=== PATIENT | male | born 1960 | race Caucasian/White ===

== ENCOUNTER 2017-12-19 12:24 | Observation (INO) | payer OTHER ==
[~2017-12-19 12:24] MED LIST: LISI-519 PO; OMEP20TA93 PO; SIMV20TA PO; VENTAER INH
[2017-12-19] MEDS: SODIUM CHLOR 0.9% 1000 ML INJ 1,000 ML IV SCH ×2 (12:56→22:56)
[2017-12-19] MEDS ORDERED: NALOXONE HCL 0.4 MG/ML AMP IV PUSH PRN (13:00)
[2017-12-19] MEDS ORDERED: ONDANSETRON HCL 4 MG/2 ML VIAL IVP PRN (13:00)
[2017-12-19] MEDS ORDERED: SODIUM CHLORIDE 0.9% FLUSH 10 ML FLUSH IV FLUSH PRN (13:00)
--- NOTE | 2017-12-19 15:42 | PD.CONS ---
HPI History of Present Illness This is a 57 year old male who presented to the [place] ER with abd pain. The pain is in epigastric region and started this morning. Pain radiates around to the back on the left side. Pain has been constant and worsening with exacerbation. No n/v, diarrhea, blood in stool, black tarry stool, weight loss. Episodes of pain are becoming more frequent. he has had pain like this before starting in 1989 when his gallbladder was removed and had jaundice at that time. He had another similar episode 2006 and "there was a stone" that was removed by his GI Dr at the time by Dr Alfaro in [place]. He had episodes as well last September 2016 and July 2017, and then 2-3 months ago. He sees Dr Stein and his last EGD and colonoscopy was 1 y ago and no abnormal findings. (Yari Mendez) PFSH Past Medical History HTN HLD GERD Past Surgical History cholecystectomy (Yari Mendez) Uncoded Allergies: SEAFOOD (Allergy, Severe, Hives, 12/19/17) Family History colon ca - mother dx age 40s parkinson's - mother Social History social etoh, 3-4 beers on a weekend day only no tobacco or illicit drug use (Yari Mendez) Review of Systems Constitutional: DENIES: Fever, Weight loss Endocrine: DENIES: Polydipsia Eyes: DENIES: Blurred vision Ears, nose, mouth, throat: DENIES: Hearing loss Respiratory: DENIES: Cough Cardiovascular: DENIES: Chest pain Gastrointestinal: COMPLAINS OF: Abdominal pain, DENIES: Black stools, Bloody stools, Diarrhea, Nausea Genitourinary: DENIES: Hematuria Musculoskeletal: DENIES: Muscle aches Integumentary: DENIES: Jaundice Hematologic/lymphatic: DENIES: Bruising Immunologic/allergic: DENIES: Eczema Neurologic: DENIES: Abnormal gait Psychiatric: DENIES: Confusion (Yari Mendez) GI Exam Physical Examination HEENT: PERRL, normocephalic; atraumatic; no jaundice. CHEST: CTA CARDIAC: RRR ABDOMEN: Soft, protuberant, mild epigastric TTP; no hepatosplenomegaly; bowel sounds are present in all four quadrants. EXTREMITIES: No clubbing, cyanosis, or edema. SKIN: Normal; no rash; no jaundice. 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 (Yari Mendez) Assessment and Plan Plan ASSESSMENT - epigastric pain, abnormal imaging - unclear etiology. epigastric pain onset [address] showed pneumobilia vs portal venous air, mild biliary duct dilatation mild obstruction vs reservoir phenomenon, CBD 11mm. no n/v. has had increasingly frequent episodes of this pain since cholecystectomy in 1989 at which time he had jaundice. had EGD and colonoscopy [address] Stein, no abnormal findings. will get MRCP w/o choledocholithiasis - isolated elevation AST - unclear etiology could be fatty liver or 2/2 above PLAN - MRCP - if MRCP negative consider EGD - monitor LFTs - clear liquids - further recs to follow pt seen by myself and Dr Vieyra and this note is on his behalf (Yari Mendez) Plan Patient was seen and examined, agree with above-noted, we will plan on doing upper endoscopy tomorrow unless there is elevation of liver function test and this could be biliary colic causing the symptom, I discussed with them ERCP including the complication at the possible low yield and he understands that and we will hold off on this right now (Efra Vieyra MD) Yari Mendez Dec 19, 2017 15:42 Efra Vieyra MD Dec 19, 2017 19:32
--- NOTE | 2017-12-19 16:18 | PD.CONS ---
cc: Juan Carlos Perales MD [facility] Service General Surgery Consult Requested By Dr. Archer Reason for Consult Pneumobilia on CT scan Primary Care Physician [facility] History of Present Illness This is a 57 year old male with a past medical history of gallstone s/p laparoscopic cholecystectomy in 2006, asthma, dyslipidemia, hypertension and GERD. The patient reported to the [place] ED with complains of sudden onset of 10/10 sharp abdominal pain on his way to work. He was in his usual state of health yesterday and upon waking up today. A CT abdomen/pelvis was obtained which shows pneumobilia. He has a normal WBC. His liver enzymes are normal. The patient was transferred to [facility] for evaluation. Of note, the patient had a similar episode of abdominal pain in September 2016 and an EGD and colonoscopy were completed which were normal per patient's report. A second episode occurred in July of 2017 and an MRI was completed and per patient's report the scan was normal. A General Surgery consultation has been requested. Review of Systems Constitutional: DENIES: Fatigue, Weight loss, Chills Endocrine: DENIES: Polydipsia, Polyuria, Polyphagia Eyes: DENIES: Diplopia, Eye inflammation Ears, nose, mouth, throat: DENIES: Tinnitus, Hearing loss Respiratory: DENIES: Apneas Cardiovascular: DENIES: Chest pain Gastrointestinal: COMPLAINS OF: Abdominal pain, DENIES: Nausea, Vomiting Genitourinary: DENIES: Urinary frequency Musculoskeletal: DENIES: Joint pain Integumentary: DENIES: Abnormal pigmentation Hematologic/lymphatic: DENIES: Bruising Immunologic/allergic: DENIES: Eczema Neurologic: DENIES: Abnormal gait, Headache Psychiatric: DENIES: Confusion, Mood changes, Depression Past Family Social History Past Medical History Gallstone s/p lap josh Asthma Dyslipidemia Hypertension GERD Past Surgical History Laparoscopic cholecystectomy Open appendectomy in his 20s Shoulder surgery Reported Medications Albuterol Simvastatin Lisinopril Omeprazole Allergies: Uncoded Allergies: SEAFOOD (Allergy, Severe, Hives, 12/19/17) Active Ordered Medications Current Medications Medications (Trade) Dose Ordered Sig/Margie Route Start Time Stop Time Status Last Admin Sodium Chloride 1,000 ml @ 100 mls/hr Q10H IV 12/19/17 12:56 (NS Flush) 2 ml UNSCH PRN IV FLUSH 12/19/17 13:00 (NS Flush) 2 ml BID IV FLUSH 12/19/17 21:00 (Zofran Inj) 4 mg Q6H PRN IVP 12/19/17 13:00 (Narcan Inj) 0.4 mg UNSCH PRN IV PUSH 12/19/17 13:00 Family History Noncontributory Social History Denies tobacco use Occasional ETOH use; not daily Denies illicit drug use The patient is . 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 Physical Exam Physical Exam GENERAL: Very pleasant 57 year old male resting in bed in no acute distress. SKIN: Warm and dry. HEAD: Atraumatic. Normocephalic. EYES: Pupils equal and round. No scleral icterus. No injection or drainage. ENT: No nasal bleeding or discharge. Mucous membranes pink and moist. NECK: Trachea midline. CARDIOVASCULAR: Regular rate and rhythm. RESPIRATORY: No accessory muscle use. Clear to auscultation. Breath sounds equal bilaterally. GASTROINTESTINAL: Abdomen soft, nondistended. Very minimal epigastric tenderness with palpation. Faint laparoscopic scars. RLQ scar well healed. MUSCULOSKELETAL: Extremities without clubbing, cyanosis, or edema. No obvious deformities. NEUROLOGICAL: Awake and alert. No obvious cranial nerve deficits. Motor grossly within normal limits. Five out of 5 muscle strength in the arms and legs. Normal speech. PSYCHIATRIC: Appropriate mood and affect; insight and judgment normal. Imaging CT abdomen/pelvis in [place] [facility] showed pneumobilia. Assessment and Plan Assessment and Plan 57 year old male with acute onset of abdominal pain; pneumobilia on CT abdomen/ pelvis -Continue to follow clinical exam -Pain medications PRN -GI also consulted---MRCP ordered for today -Will follow results -Repeat laboratory work in the morning -Thank you for this consult; We will continue to follow Discussed Condition With Dr. Diaz ALVARADO Attending Statement patient seen at bedside appears stable, possible cbd stone await mrcp findings consider ercp await gi recs will follow Attestation The exam, history, and the medical decision-making described in the above note were completed with the assistance of the mid-level provider. I reviewed and agree with the findings presented. I attest that I had a [id number] encounter with the patient on the same day, and personally performed and documented my assessment and findings in the medical record. Lexi Dodson. CHRISTIANO/First Ozzie ALVARADO Dec 19, 2017 16:18 Juan Carlos Perales MD Dec 29, 2017 08:12
[2017-12-19 16:56] VITALS: BP 127/76; PULSE 60; RESP 18; TEMP 97.5; O2SAT 97
[2017-12-19] MEDS ORDERED: GADODIAMIDE PF 287 MG/ML 5 ML VIAL (for RAD MRI) IVCONTRAST ONE (16:57)
--- NOTE | 2017-12-19 17:34 | RADRPT ---
EXAM DATE/TIME: 12/19/2017 16:20 [facility] COMPARISON: No previous studies available for comparison. INDICATIONS : Abdominal pain. CONTRAST: 19 cc Omniscan (gadodiamide) IV MEDICAL HISTORY : Hypertension. SURGICAL HISTORY : Rotator cuff, right. Appendectomy. Cholecystectomy. ENCOUNTER: Subsequent ACUITY: 1 day PAIN SCORE: 3/10 LOCATION: Right upper quadrant abdomen. TECHNIQUE: Multiplanar, multisequence magnetic resonance imaging of the abdomen was performed. High-resolution 3D dataset was utilized to reconstruct maximum-intensity projection (MIP) images. FINDINGS: INTRAHEPATIC BILE DUCTS: Mild central dilatation is noted. No significant anatomical variant is present. EXTRAHEPATIC BILE DUCTS: The common bile duct is mildly dilated and measures 9 mm. No stone or filling defect is identified. N o distal obstructing mass is visualized. GALLBLADDER: No stones, wall thickening, or pericholecystic fluid. LIVER: Scattered fatty infiltration is noted. No liver lesion is identified. Portal vein is within normal l imits. PANCREAS: The main pancreatic duct is normal in size. There is no significant anatomical variant. Signal inte nsity is within normal limits. No mass is visualized. OTHER: The remaining visualized structures demonstrate no acute abnormality. Left renal cysts are noted. CONCLUSION: 1. Mild central intrahepatic and extrahepatic biliary ductal dilatation without definite filling defe ct or mass identified. Correlation with alkaline phosphatase and bilirubin levels is suggested. Reser voir phenomenon status post cholecystectomy also remains in the differential. 2. Scattered fatty infiltration of the liver. 3. Left renal cysts. Yao Murray MD on December 19, 2017 at 17:26 Board Certified Radiologist. This report was verified electronically.
--- NOTE | 2017-12-19 18:06 | HHI.HP ---
[facility] Admission Diagnosis Diagnoses: Travel History International Travel<30 Days: No Contact w/Intl Traveler <30 Da: No Traveled to Known Affected Are: No History of Present Illness reported mutliple eposides of mid epigastric pains over past few years despite josh yesterday pm, ate at 6p.m., mash potatoes adn ham woke up in am , dropped off [facility] to school started having pain in abdomen, mid epigastric, sweating, out of breath coudl not talk due to pain boss called , who took him to er at er, had another attack of abdominal pain had further maybe 2x episodes since then no nausea no vomiting no constiaption no blood in stool or urine Review of Systems Except as stated in HPI: all other systems reviewed are Neg Past Family Social History Past Medical History HTN HLD GERD 1990 cholecystectomy 2006 ercp to remove cbd stone and had stenting [address] Stein- no stone; also had egd and colonoscopy - had polypectomy Asthma sleep apnea on cpap rosacea Past Surgical History cholecystectomy appendectomy right shoulder sx egd, colonoscopy, ercp Allergies: Uncoded Allergies: SEAFOOD (Allergy, Severe, Hives, 12/19/17) Family History colon ca - mother dx age 40s parkinson's - mother dad- dm, heart problems Social History social etoh, 3-4 beers on a weekend day only no tobacco or illicit drug use quit 18yrs ago Physical Exam Vital Signs Vital Signs Date Time Temp Pulse Resp B/P (MAP) Pulse Ox O2 Delivery O2 Flow Rate FiO2 12/19/17 16:56 97.5 60 18 127/76 (93) 97 Physical Exam GENERAL: This is a well-nourished, well-developed patient, in no apparent distress. SKIN: No rashes, ecchymoses or lesions. Cool and dry. HEAD: Atraumatic. Normocephalic. No temporal or scalp tenderness. EYES: No scleral icterus. No injection or drainage. ENT: Nose without bleeding, purulent drainage or septal hematoma. Airway patent. NECK: Trachea midline. No JVD CARDIOVASCULAR: Regular rate and rhythm without murmurs, gallops, or rubs. RESPIRATORY: Clear to auscultation. Breath sounds equal bilaterally. No wheezes , rales, or rhonchi. GASTROINTESTINAL: Abdomen soft, non-tender, nondistended. No guarding. MUSCULOSKELETAL: Extremities without clubbing, cyanosis, or edema. No calf tenderness. NEUROLOGICAL: Awake and alert. Motor and sensory grossly within normal limits Normal speech. Laboratory Labs done at [place] [facility] reviewed Imaging CT abdomen and pelvis done at [facility] d reviewed. Caprini VTE Risk Assessment Caprini VTE Risk Assessment: Mod/High Risk (score >= 2) Caprini Risk Assessment Model Point Value = 1 Point Value = 2 Point Value = 3 Point Value = 5 Age 41-60 Minor surgery BMI > 25 kg/m2 Swollen legs Varicose veins or History of unexplained or recurrent spontaneous Oral contraceptives or hormone replacement Sepsis (< 1 month) Serious lung disease, including pneumonia (< 1 month) Abnormal pulmonary function Acute myocardial infarction Congestive heart failure (< 1 month) History of inflammatory bowel disease Medical patient at bed rest Age 61-74 Arthroscopic surgery Major open surgery (> 45 min) Laparoscopic surgery (> 45 min) Malignancy Confined to bed (> 72 hours) Immobilizing plaster cast Central venous access Age >= 75 History of VTE Family history of VTE Factor V Leiden Prothrombin [id number] Lupus anticoagulant Anticardiolipin antibodies Elevated serum homocysteine Heparin-induced thrombocytopenia Other congenital or acquired thrombophilia Stroke (< 1 month) Elective arthroplasty Hip, pelvis, or leg fracture Acute spinal cord injury (< 1 month) Prophylaxis Regimen Total Risk Factor Score Risk Level Prophylaxis Regimen 0-1 Low Early ambulation 2 Moderate Order ONE of the following: *Sequential Compression Device (SCD) *Heparin 5000 units SQ BID 3-4 Higher Order ONE of the following medications: *Heparin 5000 units SQ TID *Enoxaparin/Lovenox 40 mg SQ daily (WT < 150 kg, CrCl > 30 mL/min) *Enoxaparin/Lovenox 30 mg SQ daily (WT < 150 kg, CrCl > 10-29 mL/min) *Enoxaparin/Lovenox 30 mg SQ BID (WT < 150 kg, CrCl > 30 mL/min) AND/OR *Sequential Compression Device (SCD) 5 or more Highest Order ONE of the following medications: *Heparin 5000 units SQ TID (Preferred with Epidurals) *Enoxaparin/Lovenox 40 mg SQ daily (WT < 150 kg, CrCl > 30 mL/min) *Enoxaparin/Lovenox 30 mg SQ daily (WT < 150 kg, CrCl > 10-29 mL/min) *Enoxaparin/Lovenox 30 mg SQ BID (WT < 150 kg, CrCl > 30 mL/min) AND *Sequential Compression Device (SCD) Assessment and Plan Assessment and Plan Impression: Episodic recurrent severe abdominal pains. Possible CBD stone attacks. Question whether these are ischemic bowel attacks over time. Possible peptic ulcer rupture CBD dilation on CT Pneumobilia HTN HLD GERD 1990 cholecystectomy 2006 ercp to remove cbd stone and had stenting [address] Stein- no stone; also had egd and colonoscopy - had polypectomy Asthma sleep apnea on cpap rosacea Plan: IV hydration. GI was consulted. General surgery consulted. MRCP. Likely would need ERCP. Lactate was normal. However patient's history is more suggestive of ischemic bowel. Continue to monitor on telemetry. Resume home meds. DVT prophylaxis with SCD. GI prophylaxis on pantoprazole. Discussed Condition With Patient, , nursing staff Anali Archer MD Dec 19, 2017 18:06
[2017-12-19] MEDS ORDERED: MORPHINE SULFATE 2 MG/ML SYRINGE IV PUSH PRN (18:15)
[2017-12-19] MEDS ORDERED: RESP: ALBUTEROL 0.63 MG/3 ML NEB (PRN) NEB (18:30)
[2017-12-19] MEDS ORDERED: AMLO5TAB2 PO (19:36)
[2017-12-19] MEDS ORDERED: BENA10TA PO (19:36)
[2017-12-19] MEDS: SODIUM CHLORIDE 0.9% FLUSH 10 ML FLUSH IV FLUSH SCH (19:38)
[2017-12-19 21:55] VITALS: BP 126/63; PULSE 58; RESP 18; TEMP 98.5; O2SAT 97
[2017-12-20 00:46] VITALS: BP 116/66; PULSE 60; RESP 18; TEMP 98.5; O2SAT 96
[2017-12-20 05:00] VITALS: BP 110/68; PULSE 60; RESP 18; TEMP 97.8; O2SAT 97
[2017-12-20] MEDS ORDERED: POVIDONE IODINE 5% (ANTISEPSIS KIT) 4 APPLICATIONS EACH NARE PRN (05:15)
[2017-12-20] MEDS ORDERED: LACTATED RINGER'S 1000 ML IV PRN (05:15)
[2017-12-20] MEDS ORDERED: SODIUM CHLORID 0.9% 500 ML IV PRN (05:15)
[2017-12-20] MEDS ORDERED: CHLORHEXIDINE GLUCONATE 2 % 1 PACK (2 CLOTHS) TOPICAL PRN (05:15)
[2017-12-20 07:31] VITALS: BP 130/84; PULSE 62; RESP 18; TEMP 98; O2SAT 94
[2017-12-20 08:37] LABS: AUTOMATED NEUTROPHIL # 6.4 TH/MM3 (1.8-7.7); BASOPHIL % 0.5 % (0.0-2.0); EOSINOPHIL # 0.4 TH/MM3 (0-0.4); EOSINOPHIL % 4.8 % (0.0-4.0); HEMATOCRIT 41.1 % (39.0-51.0); HEMOGLOBIN 14.3 GM/DL (13.0-17.0); LYMPH % 16.5 % (9.0-44.0); LYMPHOCYTE # 1.5 TH/MM3 (1.0-4.8); MEAN CELL VOLUME 90.1 FL (80.0-100.0); MEAN CORPUSCULAR HEMOGLOBIN 31.3 PG (27.0-34.0); MEAN CORPUSCULAR HGB CONC 34.7 % (32.0-36.0); MEAN PLATELET VOLUME 8.6 FL (7.0-11.0); MONO % 8.3 % (0.0-8.0); MONOCYTE # 0.8 TH/MM3 (0-0.9); NEUT % 69.9 % (16.0-70.0); PLATELET COUNT 224 TH/MM3 (150-450); RED BLOOD COUNT 4.56 MIL/MM3 (4.50-5.90); RED CELL DISTRIBUTION WIDTH 12.7 % (11.6-17.2); WHITE BLOOD COUNT 9.2 TH/MM3 (4.0-11.0)
[2017-12-20] MEDS: SODIUM CHLOR 0.9% 1000 ML INJ 1,000 ML IV SCH ×2 (08:56→18:56)
[2017-12-20] MEDS: SODIUM CHLORIDE 0.9% FLUSH 10 ML FLUSH IV FLUSH SCH ×2 (09:00→20:52)
[2017-12-20 09:01] LABS: ALBUMIN 3.6 GM/DL (3.4-5.0); BICARBONATE 23.7 MEQ/L (21.0-32.0); BLOOD UREA NITROGEN 10 MG/DL (7-18); CALCIUM 8.4 MG/DL (8.5-10.1); CHLORIDE 109 MEQ/L (98-107); CREATININE 0.92 MG/DL (0.60-1.30); GLOMERULAR FILTRATION RATE 84 ML/MIN (>89); GLUCOSE,RANDOM 101 MG/DL (74-106); SODIUM (NA) 141 MEQ/L (136-145)
[2017-12-20 09:03] LABS: ALT (GPT) 294 U/L (12-78); AST (GOT) 196 U/L (15-37)
[2017-12-20 09:05] LABS: ALKALINE PHOSPHATASE 114 U/L (45-117); TOTAL BILIRUBIN ADULT 1.9 MG/DL (0.2-1.0); TOTAL PROTEIN 6.9 GM/DL (6.4-8.2)
--- NOTE | 2017-12-20 09:40 | PD.PROCEDR ---
GI Procedure PROCEDURE PERFORMED ERCP, sphincterotomy, stone extractions by balloon, biopsy INDICATION FOR PROCEDURE Abdominal pain, history of common bile duct stones in the past, colic pain PROCEDURE: The procedure, risks and benefits were discussed with Mr. Guerrero and informed consent was obtained. Anesthesia sedated him with Diprivan. He was placed in the left lateral decubitus position. ERCP: Patient was placed in a prone position. The Pentax videoscope was introduced through the oropharynx and advanced to the second portion of the duodenum where the ampula was identified. Patient has periampullary diverticulum, patient had with look like old SPHINCTEROTOMY, cholangiogram gram was performed which showed filling defect in the common bile duct consistent with stone, sphincterotomy was done to expand the sphincter, sweeping the duct with balloon retrieved 2 small stones and some sludge, and of case included cholangiogram was negative EGD limited exam questionable gastritis biopsy from the antrum ESTIMATED BLOOD LOSS: None SPECIMENS REMOVED: Antrum COMPLICATIONS: None IMPRESSION: cholangiogram gram was performed which showed filling defect in the common bile duct consistent with stone, sphincterotomy was done to expand the sphincter, sweeping the duct with balloon retrieved 2 small stones and some sludge, and of case included cholangiogram was negative EGD limited exam questionable gastritis biopsy from the antrum PLAN: Nothing by mouth for 8 hours if no pain start clear liquid, advanced to low-fat diet Await biopsy results Repeat liver function test tomorrow morning This patient doing okay patient can be discharged tomorrow morning Follow-up as an outpatient in 2 weeks Efra Vieyra MD Dec 20, 2017 09:40
--- NOTE | 2017-12-20 09:42 | HHI.GIFU ---
Subjective Remarks Patient is doing okay today, no abdominal pain, he is concerned about common bile duct stone this morning because this has been going on for a long time with repeated episode of pain Objective Vitals I&O Vital Signs Date Time Temp Pulse Resp B/P (MAP) Pulse Ox O2 Delivery O2 Flow Rate FiO2 12/20/17 07:31 98.0 62 18 130/84 (99) 94 12/20/17 05:00 97.8 60 18 110/68 (82) 97 12/20/17 00:46 98.5 60 18 116/66 (83) 96 12/19/17 21:55 98.5 58 18 126/63 (84) 97 12/19/17 16:56 97.5 60 18 127/76 (93) 97 Laboratory Laboratory Tests Test 12/20/17 07:04 12/20/17 07:54 White Blood Count 9.2 Red Blood Count 4.56 Hemoglobin 14.3 Hematocrit 41.1 Mean Corpuscular Volume 90.1 Mean Corpuscular Hemoglobin 31.3 Mean Corpuscular Hemoglobin Concent 34.7 Red Cell Distribution Width 12.7 Platelet Count 224 Mean Platelet Volume 8.6 Neutrophils (%) (Auto) 69.9 Lymphocytes (%) (Auto) 16.5 Monocytes (%) (Auto) 8.3 Eosinophils (%) (Auto) 4.8 Basophils (%) (Auto) 0.5 Neutrophils # (Auto) 6.4 Lymphocytes # (Auto) 1.5 Monocytes # (Auto) 0.8 Eosinophils # (Auto) 0.4 Basophils # (Auto) 0.0 CBC Comment DIFF FINAL Differential Comment Blood Urea Nitrogen 10 Creatinine 0.92 Random Glucose 101 Total Protein 6.9 Albumin 3.6 Calcium Level 8.4 Alkaline Phosphatase 114 Aspartate Amino Transf (AST/SGOT) 196 Alanine Aminotransferase (ALT/SGPT) 294 Total Bilirubin 1.9 Sodium Level 141 Potassium Level 3.9 Chloride Level 109 Carbon Dioxide Level 23.7 Anion Gap 8 Estimat Glomerular Filtration Rate 84 Physical Exam HEENT: Pupils round and reactive to light; normocephalic; atraumatic; no jaundice. Throat is clear. NECK: Neck is supple, no JVD, no lymphadenopathy. CHEST: Chest is clear to auscultation and percussion. CARDIAC: Regular rate and rhythm with no murmur gallop or rubs. ABDOMEN: Soft, nondistended, nontender; no hepatosplenomegaly; bowel sounds are present in all four quadrants. EXTREMITIES: No clubbing, cyanosis, or edema. SKIN: Normal; no rash; no jaundice. 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 Assessment and Plan Plan Patient was seen and examined, agree with above-noted, after further discussion with the patient we did ERCP this morning IMPRESSION: cholangiogram gram was performed which showed filling defect in the common bile duct consistent with stone, sphincterotomy was done to expand the sphincter, sweeping the duct with balloon retrieved 2 small stones and some sludge, and of case included cholangiogram was negative EGD limited exam questionable gastritis biopsy from the antrum PLAN: Nothing by mouth for 8 hours if no pain start clear liquid, advanced to low-fat diet Await biopsy results Repeat liver function test tomorrow morning This patient doing okay patient can be discharged tomorrow morning Follow-up as an outpatient in 2 weeks Efra Vieyra MD Dec 20, 2017 09:42
[2017-12-20] MEDS ORDERED: DO NOT ADM ANY ANTICOAGULANT DRUGS PRN (09:50)
--- NOTE | 2017-12-20 10:06 | RADRPT ---
EXAM DATE/TIME: 12/20/2017 09:22 [facility] COMPARISON: MRCP W & W/O CONTRAST, December 19, 2017, 16:20. INDICATIONS : Choledocolithiasis. Spincterotomy. Stone extraction. FLUORO TIME: 1.3 minutes IMAGE COUNT: 2 CONTRAST: Instilled by Ordering Physician MEDICAL HISTORY : None. SURGICAL HISTORY : None. ENCOUNTER: Subsequent ACUITY: 2 days PAIN SCORE: Non-responsive. LOCATION: Right upper quadrant FINDINGS: An ERCP was performed by the ordering physician. The images demonstrate a prominent common bile duct similar to recent MRCP exam. No significant filli ng defects are demonstrated. Second image demonstrates a balloon in the distal common bile duct. CONCLUSION: ERCP as above. Augustus Preciado MD on December 20, 2017 at 9:51 Board Certified Radiologist. This report was verified electronically.
--- NOTE | 2017-12-20 11:04 | HHI.PR ---
cc: Juan Carlos Perales MD Subjective Subjective Notes Doing well Just back from ERCP Objective Vitals/I&O Vital Signs Date Time Temp Pulse Resp B/P (MAP) Pulse Ox O2 Delivery O2 Flow Rate FiO2 12/20/17 10:15 98.1 62 16 120/72 (88) 94 Room Air 12/20/17 10:00 3 Labs Laboratory Tests Test 12/20/17 07:04 12/20/17 07:54 White Blood Count 9.2 Red Blood Count 4.56 Hemoglobin 14.3 Hematocrit 41.1 Mean Corpuscular Volume 90.1 Mean Corpuscular Hemoglobin 31.3 Mean Corpuscular Hemoglobin Concent 34.7 Red Cell Distribution Width 12.7 Platelet Count 224 Mean Platelet Volume 8.6 Neutrophils (%) (Auto) 69.9 Lymphocytes (%) (Auto) 16.5 Monocytes (%) (Auto) 8.3 Eosinophils (%) (Auto) 4.8 Basophils (%) (Auto) 0.5 Neutrophils # (Auto) 6.4 Lymphocytes # (Auto) 1.5 Monocytes # (Auto) 0.8 Eosinophils # (Auto) 0.4 Basophils # (Auto) 0.0 CBC Comment DIFF FINAL Differential Comment Blood Urea Nitrogen 10 Creatinine 0.92 Random Glucose 101 Total Protein 6.9 Albumin 3.6 Calcium Level 8.4 Alkaline Phosphatase 114 Aspartate Amino Transf (AST/SGOT) 196 Alanine Aminotransferase (ALT/SGPT) 294 Total Bilirubin 1.9 Sodium Level 141 Potassium Level 3.9 Chloride Level 109 Carbon Dioxide Level 23.7 Anion Gap 8 Estimat Glomerular Filtration Rate [address] abdomen/pelvis in [place] ED showed pneumobilia. Cardiovascular: Regular Lungs: Clear Abdomen: Non-distended, Non-tender Extremities: No edema A/P Assessment and Plan 57 year old male with acute onset of abdominal pain; pneumobilia on CT abdomen/ pelvis -S/p ERCP--- did sphincterotomy; retrieved 2 small stones and sludge -Continue to monitor liver enzymes -Diet per GI -No acute surgical needs at this time; We will continue to follow though Lexi Dodson/Monitoring And Evaluation Advisor CHRISTIANO Dec 20, 2017 11:04
[2017-12-20 11:45] VITALS: BP 124/58; PULSE 50; RESP 18; TEMP 97.6; O2SAT 97
[2017-12-20] MEDS ORDERED: PROPOFOL 200 MG/20 ML AMP IV ONE (12:00)
[2017-12-20] MEDS ORDERED: SUCCINYLCHOLINE CHLORIDE 100 MG/5 ML SYRINGE IV PUSH ONE (12:00)
[2017-12-20] MEDS ORDERED: ONDANSETRON HCL 4 MG/2 ML VIAL IV PUSH ONE (12:00)
[2017-12-20] MEDS ORDERED: LIDOCAINE HCL 1% PF 5 ML SYRINGE OTHER ONE (12:00)
[2017-12-20] MEDS ORDERED: ROCURONIUM INJ 50 MG/5 ML SYRINGE IV PUSH ONE (12:00)
[2017-12-20 15:32] VITALS: BP 136/80; PULSE 60; RESP 18; TEMP 97.8; O2SAT 95
[2017-12-20 21:04] VITALS: BP 128/58; PULSE 63; RESP 16; TEMP 99.8; O2SAT 95
--- NOTE | 2017-12-20 21:28 | EKG ---
Date Performed: 12/19/2017 Time Performed: 18:34:37 PTAGE: 57 years EKG: SINUS BRADYCARDIA BORDERLINE ECG NO PREVIOUS TRACING DOCTOR: Sathya Hargrove Interpretating Date/Time 12/20/2017 21:28:15
--- NOTE | 2017-12-20 22:37 | HHI.PR ---
Subjective Remarks Patient seen after ERCP. Says he is feeling better. Denies any chest pain or shortness of breath. Denies any current abdominal pain. Denies nausea or vomiting. Objective Vital Signs Date Time Temp Pulse Resp B/P (MAP) Pulse Ox O2 Delivery O2 Flow Rate FiO2 12/20/17 21:04 99.8 63 16 128/58 (81) 95 12/20/17 15:32 97.8 60 18 136/80 (98) 95 12/20/17 11:45 97.6 50 18 124/58 (80) 97 12/20/17 10:15 98.1 62 16 120/72 (88) 94 Room Air 12/20/17 10:00 65 16 128/70 (89) 98 Nasal Cannula 3 12/20/17 09:45 97.8 69 16 133/75 (94) 94 Nasal Cannula 3 12/20/17 07:31 98.0 62 18 130/84 (99) 94 12/20/17 05:00 97.8 60 18 110/68 (82) 97 12/20/17 00:46 98.5 60 18 116/66 (83) 96 I/O 12/19/17 12/19/17 12/19/17 12/20/17 12/20/17 12/20/17 07:00 15:00 23:00 07:00 15:00 23:00 Intake Total 200 ml Balance 200 ml Intake Other 200 ml # Voids 1 4 Result Diagram: 12/20/17 0704 12/20/17 0754 Objective Remarks GENERAL: patient sitting up in bed. Appears comfortable. SKIN: Warm and dry. HEAD: Normocephalic. EYES: No scleral icterus. No injection or drainage. NECK: Supple, trachea midline. No JVD. CARDIOVASCULAR: Regular rate and rhythm without murmurs, gallops, or rubs. RESPIRATORY: Breath sounds equal bilaterally. No accessory muscle use. GASTROINTESTINAL: Abdomen soft, non-tender, nondistended. MUSCULOSKELETAL: No cyanosis, or edema. BACK: Nontender without obvious deformity. No CVA tenderness. A/P Assessment and Plan 12/20 choledocholithiasis. Status post ERCP with removal of stone. Appreciate GI assistance. As per GI, if doing okay by tomorrow can be discharged home. Episodic recurrent severe abdominal pains. Possible CBD stone attacks. Question whether these are ischemic bowel attacks over time. Possible peptic ulcer rupture CBD dilation on CT Pneumobilia HTN HLD GERD 1990 cholecystectomy 2006 ercp to remove cbd stone and had stenting [address] Stein- no stone; also had egd and colonoscopy - had polypectomy Asthma sleep apnea on cpap rosacea Plan: IV hydration. GI was consulted. General surgery consulted. MRCP. Likely would need ERCP. Lactate was normal. However patient's history is more suggestive of ischemic bowel. Continue to monitor on telemetry. Resume home meds. DVT prophylaxis with SCD. GI prophylaxis on pantoprazole. Discharge Planning discharge tomorrow if doing well, and cleared by GI. Javad Pacheco MD Dec 20, 2017 22:37
[2017-12-21 00:30] VITALS: BP 108/61; PULSE 57; RESP 16; TEMP 98.8; O2SAT 95
[2017-12-21 04:12] VITALS: BP 111/63; PULSE 52; RESP 17; TEMP 98.6; O2SAT 95
[2017-12-21] MEDS: SODIUM CHLOR 0.9% 1000 ML INJ 1,000 ML IV SCH (05:50)
[2017-12-21 07:41] LABS: ALBUMIN 3.3 GM/DL (3.4-5.0); ALT (GPT) 225 U/L (12-78); AST (GOT) 91 U/L (15-37); BICARBONATE 27.2 MEQ/L (21.0-32.0); BLOOD UREA NITROGEN 13 MG/DL (7-18); CALCIUM 8.5 MG/DL (8.5-10.1); CHLORIDE 108 MEQ/L (98-107); GLOMERULAR FILTRATION RATE 77 ML/MIN (>89); GLUCOSE,RANDOM 93 MG/DL (74-106); SODIUM (NA) 142 MEQ/L (136-145)
[2017-12-21 07:44] LABS: ALKALINE PHOSPHATASE 122 U/L (45-117); TOTAL BILIRUBIN ADULT 1.4 MG/DL (0.2-1.0); TOTAL PROTEIN 6.8 GM/DL (6.4-8.2)
[2017-12-21 07:49] VITALS: BP 126/77; PULSE 52; RESP 18; TEMP 98.1; O2SAT 96
[2017-12-21] MEDS: SODIUM CHLORIDE 0.9% FLUSH 10 ML FLUSH IV FLUSH SCH (08:49)
--- NOTE | 2017-12-21 09:45 | HHI.GIFU ---
Subjective Remarks Awaiting breakfast. Feels better, no abd pain. at bedside (Yari Mendez [employer]ER) Objective Vitals I&O Vital Signs Date Time Temp Pulse Resp B/P (MAP) Pulse Ox O2 Delivery O2 Flow Rate FiO2 12/21/17 07:49 98.1 52 18 126/77 (93) 96 12/21/17 04:12 98.6 52 17 111/63 (79) 95 12/21/17 00:30 98.8 57 16 108/61 (77) 95 12/20/17 21:04 99.8 63 16 128/58 (81) 95 12/20/17 15:32 97.8 60 18 136/80 (98) 95 12/20/17 11:45 97.6 50 18 124/58 (80) 97 12/20/17 10:15 98.1 62 16 120/72 (88) 94 Room Air 12/20/17 10:00 65 16 128/70 (89) 98 Nasal Cannula 3 12/20/17 09:45 97.8 69 16 133/75 (94) 94 Nasal Cannula 3 I/O 12/20/17 12/20/17 12/20/17 12/21/17 12/21/17 12/21/17 07:00 15:00 23:00 07:00 15:00 23:00 Intake Total 200 ml Balance 200 ml Intake Other 200 ml # Voids 4 Laboratory Laboratory Tests Test 12/21/17 06:20 Blood Urea Nitrogen 13 Creatinine 1.00 Random Glucose 93 Total Protein 6.8 Albumin 3.3 Calcium Level 8.5 Alkaline Phosphatase 122 Aspartate Amino Transf (AST/SGOT) 91 Alanine Aminotransferase (ALT/SGPT) 225 Total Bilirubin 1.4 Sodium Level 142 Potassium Level 3.8 Chloride Level 108 Carbon Dioxide Level 27.2 Anion Gap 7 Estimat Glomerular Filtration Rate 77 Imaging Last Impressions GI Procedure 12/20/17 0000 Signed Impressions: Service Date/Time: Wednesday, December 20, 2017 09:22 - CONCLUSION: ERCP as above. Augustus Preciado MD Cholangiopancreatography MRI 12/19/17 0000 Signed Impressions: Service Date/Time: Tuesday, December 19, 2017 16:20 - CONCLUSION: 1. Mild central intrahepatic and extrahepatic biliary ductal dilatation without definite filling defect or mass identified. Correlation with alkaline phosphatase and bilirubin levels is suggested. [place] phenomenon status post cholecystectomy also remains in the differential. 2. Scattered fatty infiltration of the liver. 3. Left renal cysts. Yao Murray MD Physical Exam HEENT: PERRL; normocephalic; atraumatic; no jaundice. CHEST: CTA CARDIAC: RRR ABDOMEN: Soft, nondistended, nontender; no hepatosplenomegaly; bowel sounds are present in all four quadrants. EXTREMITIES: No clubbing, cyanosis, or edema. SKIN: Normal; no rash; no jaundice. DATA DESIGNER: No focal deficits; alert and oriented times three. (Yari Mendez) Assessment and Plan Plan ASSESSMENT - epigastric pain, abnormal imaging - unclear etiology. epigastric pain onset [address] showed pneumobilia vs portal venous air, mild biliary duct dilatation mild obstruction vs reservoir phenomenon, CBD 11mm. no n/v. has had increasingly frequent episodes of this pain since cholecystectomy in 1989 at which time he had jaundice. had EGD and colonoscopy [address] Stein, no abnormal findings. will get MRCP w/o choledocholithiasis - isolated elevation AST - unclear etiology could be fatty liver or 2/2 above 12/20/17 IMPRESSION: cholangiogram gram was performed which showed filling defect in the common bile duct consistent with stone, sphincterotomy was done to expand the sphincter, sweeping the duct with balloon retrieved 2 small stones and some sludge, and of case included cholangiogram was negative EGD limited exam questionable gastritis biopsy from the antrum 12/21/17 doing well, pain improved, LFTs trending down. tolerated clears, will have regular breakfast PLAN: low fat diet Await biopsy ok to d/c home from gi standpoint if tolerates breakfast Follow-up as an outpatient in 2 weeks 'pt seen by myself and Dr Vieyra and this note is on his behalf (Yari Mendez) Plan Agree with above-noted, patient is being discharged today, follow-up as needed (Efra Vieyra MD) Yari Mendez Dec 21, 2017 09:45 Efra Vieyra MD Dec 21, 2017 16:39
--- NOTE | 2017-12-21 11:22 | HHI.PR ---
cc: Juan Carlos Perales MD Subjective Subjective Notes Resting in bed Eager to get home No issues Tolerated breakfast Objective Vitals/I&O Vital Signs Date Time Temp Pulse Resp B/P (MAP) Pulse Ox O2 Delivery O2 Flow Rate FiO2 12/21/17 07:49 98.1 52 18 126/77 (93) 96 12/20/17 10:15 Room Air 12/20/17 10:00 3 Labs Laboratory Tests Test 12/21/17 06:20 Blood Urea Nitrogen 13 Creatinine 1.00 Random Glucose 93 Total Protein 6.8 Albumin 3.3 Calcium Level 8.5 Alkaline Phosphatase 122 Aspartate Amino Transf (AST/SGOT) 91 Alanine Aminotransferase (ALT/SGPT) 225 Total Bilirubin 1.4 Sodium Level 142 Potassium Level 3.8 Chloride Level 108 Carbon Dioxide Level 27.2 Anion Gap 7 Estimat Glomerular Filtration Rate [address] abdomen/pelvis in [facility] showed pneumobilia. Cardiovascular: Regular Lungs: Clear Abdomen: Non-distended, Non-tender Extremities: No edema A/P Assessment and Plan 57 year old male with acute onset of abdominal pain; pneumobilia on CT abdomen/ pelvis -S/p ERCP--- did sphincterotomy; retrieved 2 small stones and sludge -Continue to monitor liver enzymes---trending down -Tolerated diet -GS clear for DC -No acute surgical needs at this time; We will continue to follow though Lexi Dodson/Pressing Department Supervisor CHRISTIANO Dec 21, 2017 11:22
--- NOTE | 2017-12-21 15:56 | HHI.PR ---
Subjective Remarks Patient says he is feeling well. Denies any chest pain or shortness of breath. Denies any abdominal pain. Feels like going home. Tolerated breakfast Objective Vital Signs Date Time Temp Pulse Resp B/P (MAP) Pulse Ox O2 Delivery O2 Flow Rate FiO2 12/21/17 07:49 98.1 52 18 126/77 (93) 96 12/21/17 04:12 98.6 52 17 111/63 (79) 95 12/21/17 00:30 98.8 57 16 108/61 (77) 95 12/20/17 21:04 99.8 63 16 128/58 (81) 95 I/O 12/20/17 12/20/17 12/20/17 12/21/17 12/21/17 12/21/17 07:00 15:00 23:00 07:00 15:00 23:00 Intake Total 200 ml Balance 200 ml Intake Other 200 ml # Voids 4 Result Diagram: 12/20/17 0704 12/21/17 0620 Objective Remarks GENERAL: patient sitting up in bed. Appears comfortable. No change on exam SKIN: Warm and dry. HEAD: Normocephalic. EYES: No scleral icterus. No injection or drainage. NECK: Supple, trachea midline. No JVD. CARDIOVASCULAR: Regular rate and rhythm without murmurs, gallops, or rubs. RESPIRATORY: Breath sounds equal bilaterally. No accessory muscle use. GASTROINTESTINAL: Abdomen soft, non-tender, nondistended. MUSCULOSKELETAL: No cyanosis, or edema. BACK: Nontender without obvious deformity. No CVA tenderness. A/P Assessment and Plan 12/21. Patient doing well. Status post ERCP on 12/20 with sphincterotomy and removal of 2 stones. Follow with GI as outpatient. 12/20 choledocholithiasis. Status post ERCP with removal of stone. Appreciate GI assistance. As per GI, if doing okay by tomorrow can be discharged home. Episodic recurrent severe abdominal pains. Possible CBD stone attacks. Question whether these are ischemic bowel attacks over time. Possible peptic ulcer rupture CBD dilation on CT Pneumobilia HTN HLD GERD 1990 cholecystectomy 2006 ercp to remove cbd stone and had stenting [address] Stein- no stone; also had egd and colonoscopy - had polypectomy Asthma sleep apnea on cpap rosacea Plan: IV hydration. GI was consulted. General surgery consulted. MRCP. Likely would need ERCP. Lactate was normal. However patient's history is more suggestive of ischemic bowel. Continue to monitor on telemetry. Resume home meds. DVT prophylaxis with SCD. GI prophylaxis on pantoprazole. Discharge Planning discharge home. Follow with GI as outpatient. Javad Pacheco MD Dec 21, 2017 15:56
--- NOTE | 2017-12-21 16:00 | HHI.DS ---
Discharge Summary Admission Date Dec 19, 2017 at 15:35 Discharge Date: Dec 21, 2017 Admitting Diagnosis Abdominal pain, transaminitis (1) Choledocholithiasis ICD Code: K80.50 - Calculus of bile duct without cholangitis or cholecystitis without obstruction (2) Dilation of biliary tract ICD Code: K83.8 - Other specified diseases of biliary tract Status: Acute (3) Pneumobilia ICD Code: K83.8 - Other specified diseases of biliary tract Status: Acute Procedures ERCP. Please see report Brief History - From Admission reported mutliple eposides of mid epigastric pains over past few years despite josh yesterday pm, ate at 6p.m., mash potatoes adn ham woke up in am , [facility] started having pain in abdomen, mid epigastric, sweating, out of breath coudl not talk due to pain boss called , who took him to er at er, had another attack of abdominal pain had further maybe 2x episodes since then no nausea no vomiting no constiaption no blood in stool or urine CBC/BMP: 12/20/17 0704 12/21/17 0620 Significant Findings Laboratory Tests Test 12/20/17 07:04 12/20/17 07:54 12/21/17 06:20 Monocytes (%) (Auto) 8.3 % (0.0-8.0) Eosinophils (%) (Auto) 4.8 % (0.0-4.0) Calcium Level 8.4 MG/DL (8.5-10.1) Aspartate Amino Transf (AST/SGOT) 196 U/L (15-37) 91 U/L (15-37) Alanine Aminotransferase (ALT/SGPT) 294 U/L (12-78) 225 U/L (12-78) Total Bilirubin 1.9 MG/DL (0.2-1.0) 1.4 MG/DL (0.2-1.0) Chloride Level 109 MEQ/L (98-107) 108 MEQ/L (98-107) Estimat Glomerular Filtration Rate 84 ML/MIN (>89) 77 ML/MIN (>89) Albumin 3.3 GM/DL (3.4-5.0) Alkaline Phosphatase 122 U/L (45-117) Imaging Last Impressions GI Procedure 12/20/17 0000 Signed Impressions: Service Date/Time: Wednesday, December 20, 2017 09:22 - CONCLUSION: ERCP as above. Augustus Preciado MD Cholangiopancreatography MRI 12/19/17 0000 Signed Impressions: Service Date/Time: Tuesday, December 19, 2017 16:20 - CONCLUSION: 1. Mild central intrahepatic and extrahepatic biliary ductal dilatation without definite filling defect or mass identified. Correlation with alkaline phosphatase and bilirubin levels is suggested. [place] phenomenon status post cholecystectomy also remains in the differential. 2. Scattered fatty infiltration of the liver. 3. Left renal cysts. Yao Murray MD Hospital Course Transaminitis on admission with bilirubin 1.9. HIDA scan shows intrahepatic biliary ductal dilation. Patient underwent ERCP with sphincterotomy and removal of 2 stones. Patient tolerated the procedure well. Symptoms resolved. Bilirubin decreased to 1.4, and LFTs improving on postprocedural day 1. Patient tolerated breakfast. Patient is to follow-up with GI as outpatient. Pt Condition on Discharge: Good Discharge Disposition: Discharge Home Discharge Time: > 30 minutes Discharge Instructions DIET: Follow Instructions for: Low Fat Diet Activities you can perform: Regular-No Restrictions Follow up Referrals: Gastroenterology - 1 Week with Efra Vieyra MD PCP Follow-up - 1 Week with [facility] Continued Medications: Albuterol 18 GM Inh (Ventolin Hfa 18 GM Inh) 90 Mcg/Act Aer 2 PUFF INH Q4-6H PRN for SHORTNESS OF BREATH, #1 INHALER 0 Refills Amlodipine (Amlodipine) 5 Mg Tab 5 MG PO DAILY for Blood Pressure Management, #30 TAB 0 Refills Benazepril (Benazepril) 10 Mg Tab 10 MG PO DAILY for Blood Pressure Management, #30 TAB 0 Refills Lisinopril (Lisinopril) 5 Mg Tab 5 MG PO DAILY for Blood Pressure Management, #30 TAB 0 Refills Omeprazole (Omeprazole) 20 Mg Tab 20 MG PO DAILY, #30 TAB 0 Refills Simvastatin (Simvastatin) 20 Mg Tab 40 MG PO DAILY for Cholesterol Management, #30 TAB 0 Refills Javad Pacheco MD Dec 21, 2017 16:00
== END 2017-12-21 12:02 | disposition home or self-care (01) ==
LOC: NEDDLT 15:25 → INTOOBSV 15:35 → NEPGCP 15:35
PROVIDERS: ADMIT Internal Medicine; ATTEND Internal Medicine
DX: K80.50 Calculus of bile duct without cholangitis or cholecystitis without obstruction (principal); K83.8 Other specified diseases of biliary tract; R74.0 Nonspecific elevation of levels of transaminase and lactic acid dehydrogenase [LDH]; R10.13 Epigastric pain; R61 Generalized hyperhidrosis; I10 Essential (primary) hypertension; E78.5 Hyperlipidemia, unspecified; K21.9 Gastro-esophageal reflux disease without esophagitis; G47.30 Sleep apnea, unspecified; J45.909 Unspecified asthma, uncomplicated; R93.8 Abnormal findings on diagnostic imaging of other specified body structures
CPT/HCPCS: 00813; 43239; 43262; 43264; 74177; 74183; 74330; 76377; 80053; 81001; 83605; 83690; 85025; 88305; 88312; 93005; 96360; 96374; 99285; A9579; C1769; G0378; J0330; J2270; J2405; J7030; Q9967